=== PATIENT | male | born 1940 | race Caucasian/White ===

== ENCOUNTER 2017-08-17 16:52 | Inpatient (IN) | payer MEDICARE, OTHER ==
[2017-08-17] MEDS: NORMAL SALINE 1000 ML 1,000 ML IV PRN ×2 (17:01→18:30)
[2017-08-17 17:10] LABS: ABSOLUTE EOSINOPHILS # (AUTO) 0.1 10^3/uL (0.0-0.6); ABSOLUTE LYMPHOCYTES (AUTO) 1.4 10^3/uL (0.5-4.7); ABSOLUTE MONOCYTES (AUTO) 0.7 10^3/uL (0.1-1.4); BASOPHILS % (AUTO) 0.6 % (0-2); EOSINOPHILS % (AUTO) 0.9 % (0-6); HEMATOCRIT 39.3 % (37.9-51.0); HEMOGLOBIN 13.4 g/dL (13.5-17.0); LYMPHOCYTES % (AUTO) 17.3 % (13-45); MEAN CORPUSCULAR HEMOGLOBIN 31.2 pg (27.0-33.4); MEAN CORPUSCULAR HGB CONC 34.2 g/dL (32.0-36.0); MEAN CORPUSCULAR VOLUME 91 fl (80-97); MONOCYTES % (AUTO) 8.8 % (3-13); PLATELET COUNT 212 10^3/uL (150-450); RED BLOOD COUNT 4.31 10^6/uL (4.35-5.55); RED CELL DISTRIBUTION WIDTH 13.5 % (11.5-14.0); SEGMENTED NEUTROPHILS % (AUTO) 72.4 % (42-78); TOTAL CELLS COUNTED % (AUTO) 100 %; WHITE BLOOD COUNT 8.2 10^3/uL (4.0-10.5)
[2017-08-17 17:24] LABS: ALANINE AMINOTRANSFERASE 31 U/L (21-72); ALBUMIN 3.2 g/dL (3.5-5.0); ALKALINE PHOSPHATASE 84 U/L (38-126); ANION GAP 11 (5-19); ASPARTATE AMINO TRANSFERASE 24 U/L (17-59); BILIRUBIN,DIRECT 0.2 mg/dL (0.0-0.4); BLOOD UREA NITROGEN 14 mg/dL (7-20); CALCIUM 9.1 mg/dL (8.4-10.2); CARBON DIOXIDE 22 mmol/L (22-30); CHLORIDE 107 mmol/L (98-107); CREATINE KINASE 313 U/L (55-170); GLUCOSE 120 mg/dL (75-110); POTASSIUM 3.6 mmol/L (3.6-5.0); SODIUM 139.5 mmol/L (137-145)
[2017-08-17 17:35] LABS: CREATINE KINASE MB 5.89 ng/mL (<4.55); TROPONIN I 0.015 ng/mL
--- NOTE | 2017-08-17 18:08 | ER Document Report ---
ED General - General Chief Complaint: Syncope Stated Complaint: UNRESPONSIVE Time Seen by Provider: 08/17/17 17:37 Mode of Arrival: Medic Information source: Patient, Relative, Emergency Med Personnel Notes: This is a 77-year-old man with a history very artery disease (RI, balloon angioplasty), chronic urinary incontinence (Walker) who is brought in by EMS after syncopal episode. Patient states he was out mowing the lawn for 2 hours and he came into the house and then took a shower and immediately after taking a shower he became dizzy and then syncopized. The patient's came over and gave the patient nitroglycerin at that time. She states she had complete loss of consciousness. EMS was called at the scene and the patient's blood pressure at the time of EMS arrival was 83/44. Patient denied chest pain. He is alert and states he is feeling better. Of note, the patient's states his presentation during his RI was syncope. TRAVEL OUTSIDE OF THE [place] IN LAST 30 DAYS: No - HPI Onset: Just prior to arrival Onset/Duration: Sudden Quality of pain: No pain Severity: None Pain Level: Denies Associated symptoms: denies: Chest pain, Fever, Shortness of breath Exacerbated by: Denies Relieved by: Denies Similar symptoms previously: No Recently seen / treated by doctor: No - Related Data Allergies/Adverse Reactions: No Known Allergies Allergy (Unverified 05/23/11 06:27) Past Medical History - General Information source: Patient - Social History Smoking Status: Never Smoker Cigarette use (# per day): No Chew tobacco use (# tins/day): No Frequency of alcohol use: None Drug Abuse: None Lives with: Family Family History: None Patient has suicidal ideation: No Patient has homicidal ideation: No - Past Medical History Cardiac Medical History: Reports: Hx Hypercholesterolemia, Hx Hypertension GI Medical History: Reports: Hx Gastroesophageal Reflux Disease Past Surgical History: Reports: Hx Cardiac Catheterization - Immunizations Hx Diphtheria, Pertussis, Tetanus Vaccination: Yes Review of Systems - Review of Systems Constitutional: denies: Chills, Fever EENT: No symptoms reported Cardiovascular: See HPI Respiratory: No symptoms reported Gastrointestinal: No symptoms reported Genitourinary: No symptoms reported Male Genitourinary: No symptoms reported Musculoskeletal: No symptoms reported Skin: No symptoms reported Hematologic/Lymphatic: No symptoms reported Neurological/Psychological: No symptoms reported Physical Exam - Vital signs Vitals: Resp Pulse Ox 17 91 L 08/17/17 17:08 08/17/17 17:08 Notes: Physical exam: GENERAL: 77-year-old man, alert and oriented 3, no acute distress. Blood pressure is 99/65 HEAD: Atraumatic, normocephalic. EYES: Pupils equal round and reactive to light, extraocular movements intact, sclera anicteric, conjunctiva are normal. ENT: TMs normal, nares patent, oropharynx clear without exudates. Moist mucous membranes. NECK: Normal range of motion, supple without obvious mass or JVD. LUNGS: Breath sounds clear to auscultation bilaterally and equal. No wheezes rales or rhonchi. HEART: Regular rate and rhythm without murmurs, rubs or gallops. ABDOMEN: Soft, normoactive bowel sounds. No tenderness to palpation. No guarding, no rebound. No masses appreciated. EXTREMITIES: Normal range of motion, no pitting or edema. No clubbing or cyanosis. NEUROLOGICAL: Cranial nerves II through XII grossly intact. Normal speech, moving all extremities. PSYCH: Normal mood, normal affect. SKIN: Warm, Dry, normal turgor, no rashes or lesions noted. Course - Re-evaluation Re-evalutation: 08/17/17 20:15 Note: Patient has been feeling good and is been stable on a heart rate monitor. He has had no symptoms of UTI (I sent a culture). He does have a chronic urinary cath. - Vital Signs Vital signs: Temp Pulse Resp BP Pulse Ox 14 98/67 L 97 08/17/17 21:00 08/17/17 18:45 08/17/17 21:00 - Laboratory Result Diagrams: 08/17/17 17:00 08/17/17 17:00 Laboratory results interpreted by me: 08/17/17 08/17/17 08/17/17 17:00 17:00 17:00 RBC 4.31 L Hgb 13.4 L Glucose 120 H Creatine Kinase 313 H CK-MB (CK-2) 5.89 H Total Protein 6.0 L Albumin 3.2 L Urine Protein Urine Urobilinogen Ur Leukocyte Esterase 08/17/17 17:45 RBC Hgb Glucose Creatine Kinase CK-MB (CK-2) Total Protein Albumin Urine Protein 30 H Urine Urobilinogen 2.0 H Ur Leukocyte Esterase LARGE H - Diagnostic Test Radiology reviewed: Image reviewed, Reports reviewed - Chest x-ray shows no infiltrates - EKG Interpretation by Me Rate: Normal Rhythm: NSR - EKG shows normal sinus rhythm with a ventricular rate of 66, no acute ST-T wave changes Discharge - Discharge Clinical Impression: Syncope Condition: Stable Disposition: ADMITTED OBSERVATION Admitting Provider: Hospitalist - Dr. Wolf Unit Admitted: Telemetry
[2017-08-17 18:11] LABS: APPEARANCE,URINE SLIGHTLY-CLOUDY; BILIRUBIN,URINE NEGATIVE (NEGATIVE); COLOR,URINE YELLOW; GLUCOSE, URINE NEGATIVE (NEGATIVE); KETONES,URINE NEGATIVE (NEGATIVE); LEUKOCYTE ESTERASE,URINE LARGE (NEGATIVE); NITRITE,URINE NEGATIVE (NEGATIVE); PROTEIN,URINE 30 mg/dL (NEGATIVE); URINE SPECIFIC GRAVITY 1.012
--- NOTE | 2017-08-17 18:23 | EKG REPORT ---
SEVERITY:- ABNORMAL ECG - SINUS RHYTHM LATERAL INFARCT, OLD BORDERLINE PROLONGED QT INTERVAL : Confirmed by: Norberto Frias MD 17-Aug-2017 18:22:39
--- NOTE | 2017-08-17 18:37 | RADIOLOGY REPORT (SQ) ---
EXAM DESCRIPTION: CHEST SINGLE VIEW COMPLETED DATE/TIME: 08/17/2017 6:23 pm REASON FOR STUDY: syncope COMPARISON: 12/19/2007 EXAM PARAMETERS: NUMBER OF VIEWS: One view. TECHNIQUE: Single frontal radiographic view of the chest acquired. RADIATION DOSE: NA LIMITATIONS: None. FINDINGS: LUNGS AND PLEURA: No acute opacities, masses or pneumothorax. No pleural effusion. MEDIASTINUM AND HILAR STRUCTURES: Stable. HEART AND VASCULAR STRUCTURES: Heart normal in size. Normal vasculature. BONES: No acute findings. HARDWARE: None in the chest. OTHER: No other significant finding. IMPRESSION: NO ACUTE RADIOGRAPHIC FINDING IN THE CHEST. TECHNICAL DOCUMENTATION: JOB ID: [id number] [id number] 2010 [employer]- All Rights Reserved Reading location - IP/workstation name: [email or web address]
[2017-08-17] MEDS ORDERED: MAG HYDROX/AL HYDROX/SIMETH SUSP 30 ML UDCUP PO PRN (20:12)
[2017-08-17] MEDS ORDERED: IPRATROPIUM/ALBUTEROL 0.5-2.5 MG/3 ML AMPUL NEB PRN (20:12)
[2017-08-17] MEDS ORDERED: ONDANSETRON HCL INJ/PF 4 MG/2 ML SDV IV PRN (20:12)
[2017-08-17] MEDS ORDERED: NORMAL SALINE 1000 ML 1,000 ML IV SCH (20:15)
[2017-08-17 22:55] LABS: URINE AMPHETAMINES SCREEN NEGATIVE; URINE BARBITURATES SCREEN NEGATIVE; URINE BENZODIAZEPINES SCREEN NEGATIVE; URINE COCAINE SCREEN NEGATIVE; URINE MARIJUANA (THC) SCREEN NEGATIVE; URINE METHADONE SCREEN NEGATIVE; URINE PHENCYCLIDINE SCREEN NEGATIVE
[2017-08-18 00:15] LABS: CREATINE KINASE MB 5.18 ng/mL (<4.55); TROPONIN I 0.017 ng/mL
[2017-08-18] MEDS: HEPARIN SOD (PORCINE) 5,000 UNIT/ML 1 ML SYRINGE SUBCUT SCH ×4 (00:50→21:21)
[2017-08-18] MEDS: SIMVASTATIN 40 MG TABLET PO SCH ×2 (00:50→21:20)
[2017-08-18 06:17] LABS: ABSOLUTE EOSINOPHILS # (AUTO) 0.1 10^3/uL (0.0-0.6); ABSOLUTE LYMPHOCYTES (AUTO) 1.5 10^3/uL (0.5-4.7); ABSOLUTE MONOCYTES (AUTO) 0.9 10^3/uL (0.1-1.4); ABSOLUTE NEUT (AUTO) 5.3 10^3/uL (1.7-8.2); BASOPHILS % (AUTO) 0.6 % (0-2); EOSINOPHILS % (AUTO) 1.4 % (0-6); HEMATOCRIT 35.5 % (37.9-51.0); HEMOGLOBIN 12.1 g/dL (13.5-17.0); LYMPHOCYTES % (AUTO) 19.3 % (13-45); MEAN CORPUSCULAR HEMOGLOBIN 31.2 pg (27.0-33.4); MEAN CORPUSCULAR VOLUME 92 fl (80-97); MONOCYTES % (AUTO) 11.9 % (3-13); PLATELET COUNT 190 10^3/uL (150-450); RED BLOOD COUNT 3.87 10^6/uL (4.35-5.55); RED CELL DISTRIBUTION WIDTH 13.6 % (11.5-14.0); SEGMENTED NEUTROPHILS % (AUTO) 66.8 % (42-78); TOTAL CELLS COUNTED % (AUTO) 100 %; WHITE BLOOD COUNT 7.9 10^3/uL (4.0-10.5)
[2017-08-18 06:50] LABS: ANION GAP 7 (5-19); BLOOD UREA NITROGEN 11 mg/dL (7-20); CALCIUM 8.6 mg/dL (8.4-10.2); CARBON DIOXIDE 24 mmol/L (22-30); CHLORIDE 109 mmol/L (98-107); GLUCOSE 83 mg/dL (75-110); POTASSIUM 3.5 mmol/L (3.6-5.0); SODIUM 139.9 mmol/L (137-145)
[2017-08-18 06:52] LABS: CREATINE KINASE MB 4.19 ng/mL (<4.55); TROPONIN I 0.025 ng/mL
--- NOTE | 2017-08-18 07:50 | PDOC H&P ---
History of Present Illness Admission Date/PCP: 08/17/17 20:23 Patient complains of: Syncope History of Present Illness: TITUS AVILES is a 77 year old male with history of coronary artery disease, chronic incontinence with indwelling Walker, hypertension gait instability. Patient presents after prolonged yardwork followed by hot shower with lightheadedness followed by syncope. Patient's is administered nitroglycerin. There was complete loss of consciousness with bowel incontinence , EMS records a blood pressure of 83/44. On route to emergency room patient recovers consciousness denying pain. In the emergency room he denies recent change in medications, previous episode and otherwise feels well. No headache, shortness of breath, nausea vomiting or chest pain. Past Medical History Cardiac Medical History: Reports: Myocardial Infarction - balloon placed, Hyperlipidema, Hypertension Renal/ Medical History: Reports: Other - BPH with indwelling Walker GI Medical History: Reports: Gastroesophageal Reflux Disease Psychiatric Medical History: Denies: Depression Past Surgical History Past Surgical History: Reports: Cardiac Catheterization Social History Information Source: Patient Lives with: Family Smoking Status: Never Smoker Frequency of Alcohol Use: None Hx Recreational Drug Use: No Drugs: None Hx Prescription Drug Abuse: No - Advance Directive Resuscitation Status: Full Code Family History Family History: Hypertension Parental Family History Reviewed: Yes Children Family History Reviewed: Yes Sibling(s) Family History Reviewed.: Yes Medication/Allergy Home Medications: Aspirin [Aspirin EC] 81 mg PO DAILY 08/17/17 Atorvastatin Calcium [Lipitor 40 mg Tablet] 40 mg PO QHS 08/17/17 Clopidogrel Bisulfate [Plavix 75 mg Tablet] 75 mg PO DAILY 08/17/17 Hydrochlorothiazide [Hydrodiuril 25 mg Tablet] 25 mg PO DAILY 08/17/17 Metoprolol Succinate [Toprol Xl 25 mg Tab.sr] 25 mg PO DAILY 08/17/17 Nitroglycerin [Nitrostat] 0.4 mg SL Q5MP PRN 08/17/17 Pantoprazole Sodium [Protonix] 40 mg PO BID 08/17/17 Terazosin HCl [Hytrin] 5 mg PO DAILY 08/17/17 Allergies/Adverse Reactions: No Known Allergies Allergy (Unverified 05/23/11 06:27) Review of Systems Constitutional: ABSENT: chills, fever(s), headache(s), weight gain, weight loss Eyes: ABSENT: visual disturbances Ears: ABSENT: hearing changes Cardiovascular: ABSENT: chest pain, dyspnea on exertion, edema, orthropnea, palpitations Respiratory: ABSENT: cough, hemoptysis Gastrointestinal: ABSENT: abdominal pain, constipation, diarrhea, hematemesis, hematochezia, nausea, vomiting Genitourinary: ABSENT: dysuria, hematuria Musculoskeletal: ABSENT: joint swelling Integumentary: ABSENT: rash, wounds Neurological: ABSENT: abnormal gait, abnormal speech, confusion, dizziness, focal weakness, syncope Psychiatric: ABSENT: anxiety, depression, homidical ideation, suicidal ideation Endocrine: ABSENT: cold intolerance, heat intolerance, polydipsia, polyuria Hematologic/Lymphatic: ABSENT: easy bleeding, easy bruising Physical Exam Vital Signs: Temp Pulse Resp BP Pulse Ox 98.3 F 79 16 123/70 99 08/18/17 04:16 08/18/17 04:16 08/18/17 04:16 08/18/17 04:16 08/18/17 04:16 Intake & Output 08/16/17 08/17/17 08/18/17 11:59 11:59 11:59 Intake Total 2250 Output Total 1800 Balance 450 Weight 108.2 kg General appearance: PRESENT: no acute distress, well-developed, well-nourished Head exam: PRESENT: atraumatic, normocephalic Eye exam: PRESENT: conjunctiva pink, EOMI, PERRLA. ABSENT: scleral icterus Ear exam: PRESENT: normal external ear exam Mouth exam: PRESENT: moist, tongue midline Neck exam: ABSENT: carotid bruit, JVD, lymphadenopathy, thyromegaly Respiratory exam: PRESENT: clear to auscultation santiago. ABSENT: rales, rhonchi, wheezes Cardiovascular exam: PRESENT: RRR. ABSENT: diastolic murmur, rubs, systolic murmur Pulses: PRESENT: normal dorsalis pedis pul Vascular exam: PRESENT: normal capillary refill GI/Abdominal exam: PRESENT: normal bowel sounds, soft. ABSENT: distended, guarding, mass, organolmegaly, rebound, tenderness Rectal exam: PRESENT: deferred Extremities exam: PRESENT: full ROM. ABSENT: calf tenderness, clubbing, pedal edema Neurological exam: PRESENT: alert, awake, oriented to person, oriented to place , oriented to time, oriented to situation, CN II-XII grossly intact. ABSENT: motor sensory deficit Psychiatric exam: PRESENT: appropriate affect, normal mood. ABSENT: homicidal ideation, suicidal ideation Skin exam: PRESENT: dry, intact, warm. ABSENT: cyanosis, rash Results Laboratory Results: 08/18/17 05:39 08/18/17 05:39 08/18/17 08/18/17 05:39 05:39 WBC 7.9 RBC 3.87 L Hgb 12.1 L Hct 35.5 L MCV 92 MCH 31.2 MCHC 34.0 RDW 13.6 Plt Count 190 Seg Neutrophils % 66.8 Lymphocytes % 19.3 Monocytes % 11.9 Eosinophils % 1.4 Basophils % 0.6 Absolute Neutrophils 5.3 Absolute Lymphocytes 1.5 Absolute Monocytes 0.9 Absolute Eosinophils 0.1 Absolute Basophils 0.0 Sodium 139.9 Potassium 3.5 L Chloride 109 H Carbon Dioxide 24 Anion Gap 7 BUN 11 Creatinine 0.78 Est GFR ( Amer) > 60 Est GFR (Non-Af Amer) > 60 Glucose 83 Calcium 8.6 08/17/17 08/17/17 08/18/17 23:33 23:33 05:39 Creatine Kinase 238 H 223 H CK-MB (CK-2) 5.18 H Troponin I 0.017 08/18/17 05:39 Creatine Kinase CK-MB (CK-2) 4.19 Troponin I 0.025 Impressions: Chest X-Ray 08/17/17 18:08 IMPRESSION: NO ACUTE RADIOGRAPHIC FINDING IN THE CHEST. Assessment & Plan - Diagnosis (1) Syncope Is this a current diagnosis for this admission?: Yes Plan: Likely secondary to urinary tract infection comp gated by terazosin. Empiric antibiotics initiated, IV fluid challenge and follow-up blood pressures (2) Hypotension Is this a current diagnosis for this admission?: Yes Plan: CARTER beckwith, please see #1 (3) BPH (benign prostatic hyperplasia) Is this a current diagnosis for this admission?: Yes Plan: Change terazosin dose to nightly (4) UTI (urinary tract infection) Is this a current diagnosis for this admission?: Yes Plan: Empiric antibiotics, follow-up CBC, blood and urine culture - Time Time Spent: 30 to 50 Minutes - Inpatient Certification Medical Necessity: Need Close Monitoring Due to Risk of Patient Decompensation
[2017-08-18] MEDS: DOCUSATE SODIUM 100 MG CAPSULE PO SCH ×2 (10:59→17:56)
[2017-08-18] MEDS: LANSOPRAZOLE 30 MG TAB.RAP.DR PO SCH ×2 (11:00→17:56)
[2017-08-18] MEDS: ASPIRIN 325 MG TABLET PO SCH (11:00)
[2017-08-18] MEDS: CLOPIDOGREL BISULFATE 75 MG TABLET PO SCH (11:00)
[2017-08-18] MEDS: METOPROLOL SUCCINATE 25 MG TAB.SR.24H PO SCH (11:01)
[2017-08-18 12:42] LABS: CREATINE KINASE MB 3.58 ng/mL (<4.55); TROPONIN I 0.018 ng/mL
[2017-08-18] MEDS ORDERED: CEFTRIAXONE 1 GM/D5W RTU 1 GM/50 ML RTUPB IV SCH (14:00)
[2017-08-18] MEDS ORDERED: POTASSIUM CHLORIDE 10 MEQ TABLET.SA PO ONE (14:30)
[2017-08-18] MEDS: CEFTRIAXONE SODIUM 1,000 MG in DEXTROSE 5%-WATER 50 ML IV SCH (15:03)
--- NOTE | 2017-08-18 19:35 | PDOC PROGRESS REPORT ---
Subjective Progress Note for:: 08/18/17 Subjective:: Doing better, no recurrent syncope. No chest pain or shortness of breath or palpitations. Denies fever or chills. Family at bedside. Reason For Visit: SYNCOPE HYPOTENSION Physical Exam Vital Signs: Temp Pulse Resp BP Pulse Ox 98.6 F 69 18 114/61 97 08/18/17 15:58 08/18/17 16:00 08/18/17 16:00 08/18/17 15:58 08/18/17 16:00 Intake & Output 08/17/17 08/18/17 08/19/17 06:59 06:59 06:59 Intake Total 2250 510 Output Total 1800 600 Balance 450 -90 Weight 108.2 kg GEN: NAD, well-developed, well-nourished CV: RRR, NL S1S2 LUNGS: CTA bilaterally ABDOMEN Soft, NT, +BS EXTERMITIES: No e/c/c NEURO: Alert, oriented, no acute weakness Results Laboratory Results: 08/18/17 05:39 08/18/17 05:39 08/18/17 08/18/17 05:39 05:39 WBC 7.9 RBC 3.87 L Hgb 12.1 L Hct 35.5 L MCV 92 MCH 31.2 MCHC 34.0 RDW 13.6 Plt Count 190 Seg Neutrophils % 66.8 Lymphocytes % 19.3 Monocytes % 11.9 Eosinophils % 1.4 Basophils % 0.6 Absolute Neutrophils 5.3 Absolute Lymphocytes 1.5 Absolute Monocytes 0.9 Absolute Eosinophils 0.1 Absolute Basophils 0.0 Sodium 139.9 Potassium 3.5 L Chloride 109 H Carbon Dioxide 24 Anion Gap 7 BUN 11 Creatinine 0.78 Est GFR ( Amer) > 60 Est GFR (Non-Af Amer) > 60 Glucose 83 Calcium 8.6 08/17/17 08/17/17 08/18/17 23:33 23:33 05:39 Creatine Kinase 238 H 223 H CK-MB (CK-2) 5.18 H Troponin I 0.017 08/18/17 08/18/17 08/18/17 05:39 11:35 11:35 Creatine Kinase 185 H CK-MB (CK-2) 4.19 3.58 Troponin I 0.025 0.018 Impressions: Chest X-Ray 08/17/17 18:08 IMPRESSION: NO ACUTE RADIOGRAPHIC FINDING IN THE CHEST. Assessment & Plan - Plan Summary Plan Summary: (1) Syncope Is this a current diagnosis for this admission?: Yes Plan: Likely secondary to urinary tract infection complicated by terazosin. We will continue empiric antibioticsd, IV fluid challenge and to follow-up blood pressures (2) Hypotension Is this a current diagnosis for this admission?: Yes Plan: CARTER stockings (3) BPH (benign prostatic hyperplasia) Is this a current diagnosis for this admission?: Yes Plan: Admissionist changed terazosin dose to nightly --will continue (4) UTI (urinary tract infection), catheter associated Is this a current diagnosis for this admission?: Yes Plan: Continue empiric antibiotics with Rocephin, follow-up CBC, blood and urine culture
[2017-08-18] MEDS: DOXAZOSIN MESYLATE 4 MG TABLET PO SCH (21:20)
[2017-08-19] MEDS: HEPARIN SOD (PORCINE) 5,000 UNIT/ML 1 ML SYRINGE SUBCUT SCH ×3 (05:26→22:20)
[2017-08-19 05:37] LABS: ABSOLUTE BASOPHILS # (AUTO) 0.1 10^3/uL (0.0-0.2); ABSOLUTE EOSINOPHILS # (AUTO) 0.1 10^3/uL (0.0-0.6); ABSOLUTE LYMPHOCYTES (AUTO) 1.6 10^3/uL (0.5-4.7); ABSOLUTE MONOCYTES (AUTO) 0.8 10^3/uL (0.1-1.4); ABSOLUTE NEUT (AUTO) 4.7 10^3/uL (1.7-8.2); BASOPHILS % (AUTO) 0.7 % (0-2); HEMATOCRIT 34.9 % (37.9-51.0); HEMOGLOBIN 12.1 g/dL (13.5-17.0); LYMPHOCYTES % (AUTO) 21.4 % (13-45); MEAN CORPUSCULAR HEMOGLOBIN 31.8 pg (27.0-33.4); MEAN CORPUSCULAR HGB CONC 34.8 g/dL (32.0-36.0); MEAN CORPUSCULAR VOLUME 92 fl (80-97); MONOCYTES % (AUTO) 11.4 % (3-13); PLATELET COUNT 166 10^3/uL (150-450); RED BLOOD COUNT 3.81 10^6/uL (4.35-5.55); RED CELL DISTRIBUTION WIDTH 13.6 % (11.5-14.0); SEGMENTED NEUTROPHILS % (AUTO) 64.5 % (42-78); TOTAL CELLS COUNTED % (AUTO) 100 %; WHITE BLOOD COUNT 7.3 10^3/uL (4.0-10.5)
[2017-08-19 06:28] LABS: ANION GAP 8 (5-19); BLOOD UREA NITROGEN 12 mg/dL (7-20); CALCIUM 8.8 mg/dL (8.4-10.2); CARBON DIOXIDE 23 mmol/L (22-30); CHLORIDE 109 mmol/L (98-107); GLUCOSE 91 mg/dL (75-110); POTASSIUM 4.1 mmol/L (3.6-5.0); SODIUM 139.7 mmol/L (137-145)
[2017-08-19] MEDS: METOPROLOL SUCCINATE 25 MG TAB.SR.24H PO SCH (10:46)
[2017-08-19] MEDS: CLOPIDOGREL BISULFATE 75 MG TABLET PO SCH (10:46)
[2017-08-19] MEDS: ASPIRIN 325 MG TABLET PO SCH (10:46)
[2017-08-19] MEDS: DOCUSATE SODIUM 100 MG CAPSULE PO SCH ×2 (10:48→18:48)
[2017-08-19] MEDS: LANSOPRAZOLE 30 MG TAB.RAP.DR PO SCH ×2 (10:53→18:48)
--- NOTE | 2017-08-19 12:51 | PDOC PROGRESS REPORT ---
Subjective Progress Note for:: 08/19/17 Subjective:: Doing better, no recurrent syncope. No chest pain or shortness of breath or palpitations. Denies fever or chills. at bedside. Reason For Visit: SYNCOPE HYPOTENSION Physical Exam Vital Signs: Temp Pulse Resp BP Pulse Ox 98.1 F 59 L 14 123/63 99 08/19/17 07:46 08/19/17 08:20 08/19/17 08:20 08/19/17 07:46 08/19/17 08:20 GEN: NAD, well-developed, well-nourished CV: RRR, NL S1S2 LUNGS: CTA bilaterally ABDOMEN Soft, NT, +BS EXTERMITIES: No e/c/c NEURO: Alert, oriented, no acute weakness Results Impressions: Chest X-Ray 08/17/17 18:08 IMPRESSION: NO ACUTE RADIOGRAPHIC FINDING IN THE CHEST. Assessment & Plan - Plan Summary Plan Summary: (1) Syncope Is this a current diagnosis for this admission?: Yes Plan: Likely secondary to urinary tract infection complicated by terazosin. Urine culture growing gram-negative rods. Will follow culture results. For now we will continue empiric antibiotics with Rocephin, IV fluid challenge and to follow-up blood pressures (2) Hypotension Is this a current diagnosis for this admission?: Yes Plan: CARTER beckwith (3) BPH (benign prostatic hyperplasia) Is this a current diagnosis for this admission?: Yes Plan: Admissionist changed terazosin dose to nightly --will continue (4) UTI (urinary tract infection), catheter associated Is this a current diagnosis for this admission?: Yes Plan: Continue empiric antibiotics with Rocephin, follow-up CBC, blood and urine culture
[2017-08-19] MEDS: GLYCERIN/WITCH HAZEL LEAF 1 EACH MED..PAD TP SCH ×2 (15:52→18:50)
[2017-08-19] MEDS: CEFTRIAXONE SODIUM 1,000 MG in DEXTROSE 5%-WATER 50 ML IV SCH (15:53)
[2017-08-19] MEDS: DOXAZOSIN MESYLATE 4 MG TABLET PO SCH (22:19)
[2017-08-19] MEDS: SIMVASTATIN 40 MG TABLET PO SCH (22:19)
[2017-08-20] MEDS: HEPARIN SOD (PORCINE) 5,000 UNIT/ML 1 ML SYRINGE SUBCUT SCH (06:01)
[2017-08-20 08:36] VITALS: BP 127/69
[2017-08-20] MEDS: CLOPIDOGREL BISULFATE 75 MG TABLET PO SCH (09:58)
[2017-08-20] MEDS: ASPIRIN 325 MG TABLET PO SCH (09:58)
[2017-08-20] MEDS: METOPROLOL SUCCINATE 25 MG TAB.SR.24H PO SCH (09:59)
[2017-08-20] MEDS: LANSOPRAZOLE 30 MG TAB.RAP.DR PO SCH (09:59)
[2017-08-20] MEDS: DOCUSATE SODIUM 100 MG CAPSULE PO SCH (10:00)
[2017-08-20] MEDS: GLYCERIN/WITCH HAZEL LEAF 1 EACH MED..PAD TP SCH (10:00)
[2017-08-20] MEDS ORDERED: CIPROFLOXACIN HCL 500 MG TABLET PO ONE (10:30)
--- NOTE | 2017-08-20 20:37 | PDOC DISCHARGE SUMMARY ---
General - Admit/Disc Date/PCP Admission Date/Primary Care Provider: 08/19/17 11:07 Discharge Date: 08/20/17 - Additional Information Resuscitation Status: Full Code Discharge Diet: Cardiac Discharge Activity: Activity As Tolerated Prescriptions: Ciprofloxacin HCl [Cipro 500 mg Tablet] 500 mg PO BID #14 tablet Home Medications: Aspirin [Aspirin EC] 81 mg PO DAILY 08/17/17 Atorvastatin Calcium [Lipitor 40 mg Tablet] 40 mg PO QHS 08/17/17 Clopidogrel Bisulfate [Plavix 75 mg Tablet] 75 mg PO DAILY 08/17/17 Hydrochlorothiazide [Hydrodiuril 25 mg Tablet] 25 mg PO DAILY 08/17/17 Metoprolol Succinate [Toprol Xl 25 mg Tab.sr] 25 mg PO DAILY 08/17/17 Nitroglycerin [Nitrostat] 0.4 mg SL Q5MP PRN 08/17/17 Pantoprazole Sodium [Protonix] 40 mg PO BID 08/17/17 Terazosin HCl [Hytrin] 5 mg PO DAILY 08/17/17 Aspirin [Aspirin 325 mg Tablet] 325 mg PO DAILY tablet 08/20/17 Ciprofloxacin HCl [Cipro 500 mg Tablet] 500 mg PO BID #14 tablet 08/20/17 History of Present Illness History of Present Illness: Patient was admitted after he presented as seen HPI below: "TITUS AVILES is a 77 year old male with history of coronary artery disease, chronic incontinence with indwelling Walker, hypertension gait instability. Patient presents after prolonged yardwork followed by hot shower with lightheadedness followed by syncope. Patient's is administered nitroglycerin. There was complete loss of consciousness with bowel incontinence , EMS records a blood pressure of 83/44. On route to emergency room patient recovers consciousness denying pain. In the emergency room he denies recent change in medications, previous episode and otherwise feels well. No headache, shortness of breath, nausea vomiting or chest pain." Hospital Course Hospital Course: Patient was admitted and managed as follows: (4) UTI (urinary tract infection), catheter associated Is this a current diagnosis for this admission?: Yes Plan: Patient was treated with Rocephin IV. Urine culture grew Alcaligenes Species and Providencia Rettgeri sensitive to Rocephin and ciprofloxacin, among others. He is doing better now, no dysuria and he is being discharged home on Cipro 500 mg orally twice daily for 7 additional days of antibiotics. (1) Syncope Is this a current diagnosis for this admission?: Yes Plan: Likely secondary to urinary tract infection complicated by terazosin. He improved with IV fluid challenge. Doing much better at this time, no recurrent syncope or presyncope. No dizziness. (2) Hypotension Is this a current diagnosis for this admission?: Yes Plan: Resolved. (3) BPH (benign prostatic hyperplasia) Is this a current diagnosis for this admission?: Yes Plan: Instructed to take terazosin at nights. Disposition: Patient is being discharged home in stable condition. He is to follow-up with his primary care physician within 1 week. Physical Exam Vital Signs: Temp Pulse Resp BP Pulse Ox 98.3 F 60 17 127/69 H 98 08/20/17 10:48 08/20/17 10:48 08/20/17 10:48 08/20/17 10:48 08/20/17 10:48 Intake & Output 08/19/17 08/20/17 08/21/17 06:59 06:59 06:59 Intake Total 2025 Output Total 4580 Balance -2554 GEN: NAD, well-developed, well-nourished CV: RRR, NL S1S2 LUNGS: CTA bilaterally ABDOMEN Soft, NT, +BS EXTERMITIES: No e/c/c NEURO: Alert, oriented, no acute weakness Results Impressions: Chest X-Ray 08/17/17 18:08 IMPRESSION: NO ACUTE RADIOGRAPHIC FINDING IN THE CHEST. Qualifiers - * PATIENT BEING DISCHARGED WITH ANY OF THE FOLLOWING DIAGNOSIS: No
== END 2017-08-20 11:38 | disposition home or self-care (01) | DRG 700 ==
LOC: ER 16:52 → EH 20:23 → INTOOBSV 20:23 → 4N 22:26 → OBSVTOIN 08-19 11:07
PROVIDERS: ADMIT Internal Medicine; ATTEND Internal Medicine
PROC: 3E0F73Z Introduction of Anti-inflammatory into Respiratory Tract, Via Natural or Artificial Opening (ICD-10-PCS; principal; 2017-08-18)
DX: T83.511A Infection and inflammatory reaction due to indwelling urethral catheter, initial encounter (principal); N39.0 Urinary tract infection, site not specified; I25.10 Atherosclerotic heart disease of native coronary artery without angina pectoris; I10 Essential (primary) hypertension; R26.9 Unspecified abnormalities of gait and mobility; Y84.6 Urinary catheterization as the cause of abnormal reaction of the patient, or of later complication, without mention of misadventure at the time of the procedure; N40.1 Benign prostatic hyperplasia with lower urinary tract symptoms; E78.00 Pure hypercholesterolemia, unspecified; K21.9 Gastro-esophageal reflux disease without esophagitis; I25.2 Old myocardial infarction; Z79.899 Other long term (current) drug therapy; Z82.49 Family history of ischemic heart disease and other diseases of the circulatory system
CPT/HCPCS: 36415; 71045; 80048; 80053; 80307; 81001; 82550; 82553; 83735; 84443; 84484; 85025; 87086; 87088; 87186; 93005; 93010; 99285; G0378; J0696; J1644; J3490; J7030

== ENCOUNTER 2018-10-03 13:04 | Emergency (ER) | payer MEDICARE, OTHER ==
[2018-10-03] MEDS ORDERED: LIDOCAINE 2% URO-JET 5 ML KIT MM ONE (13:39)
[2018-10-03 19:11] VITALS: BP 132/103
--- NOTE | 2018-10-03 19:37 | ER Document Report ---
Entered by RIC CRUZ SCRIBE 10/03/18 1531 Acting as scribe for:FÁTIMA ROME DO ED GI/ - General Chief Complaint: Problem with Urinary Catheter Stated Complaint: CATHETER ISSUE Time Seen by Provider: 10/03/18 15:14 Primary Care Provider: DARIO AZUL [facility] [Primary Care Provider] - Follow up as needed Mode of Arrival: Ambulatory Information source: Patient Notes: 78-year-old male that presents to the emergency department today with complaints of urinary retention for the past 24 hours. Patient is at [facility] [place] secondary to a recent LA/CVA. Patient states his reeves catheter was likely accidentally removed yesterday. at bedside states he has had a Reeves catheter for years and they are both unsure of if the catheter was removed accidentally or purposely. Patient states the nurse at [place] was attempting to insert another reeves catheter today but had noticed a large amount of blood so she stopped. TRAVEL OUTSIDE OF THE [place] IN LAST 30 DAYS: No - Related Data Allergies/Adverse Reactions: No Known Allergies Allergy (Unverified 05/23/11 06:27) Past Medical History - General Information source: Patient - Social History Smoking Status: Never Smoker Cigarette use (# per day): No Chew tobacco use (# tins/day): No Frequency of alcohol use: None Drug Abuse: None Lives with: Family Family History: Reviewed & Not Pertinent, Hypertension - Past Medical History Cardiac Medical History: Reports: Hx Heart Attack - balloon placed, Hx Hypercholesterolemia, Hx Hypertension GI Medical History: Reports: Hx Gastroesophageal Reflux Disease Past Surgical History: Reports: Hx Cardiac Catheterization - Immunizations Hx Diphtheria, Pertussis, Tetanus Vaccination: Yes Review of Systems - Review of Systems Constitutional: No symptoms reported EENT: No symptoms reported Cardiovascular: No symptoms reported Respiratory: No symptoms reported Gastrointestinal: No symptoms reported Genitourinary: See HPI, Hematuria, Retention Male Genitourinary: No symptoms reported Musculoskeletal: No symptoms reported Skin: No symptoms reported Hematologic/Lymphatic: No symptoms reported Neurological/Psychological: No symptoms reported -: Yes All other systems reviewed and negative Physical Exam - Vital signs Vitals: Resp Pulse Ox 29 H 94 10/03/18 14:00 10/03/18 14:00 - Notes Notes: PHYSICAL EXAM GENERAL: Alert, interacts well. Appears uncomfortable. HEAD: Normocephalic, atraumatic. EYES: Pupils equal, round, and reactive to light. Extraocular movements intact. ENT: Oral mucosa moist, tongue midline. NECK: Full range of motion. Supple. Trachea midline. LUNGS: Clear to auscultation bilaterally, no wheezes, rales, or rhonchi. No respiratory distress. HEART: Regular rate and rhythm. No murmurs, gallops, or rubs. ABDOMEN: Soft with lower abdomen revealing firm palpable bladder otherwise non-distended. Bowel sounds present in all 4 quadrants. No guarding, rigidity, or rebound. : External genitalia unremarkable. EXTREMITIES: Moves all 4 extremities spontaneously. No edema, radial and dorsali s pedis pulses 2/4 bilaterally. No cyanosis. NEUROLOGICAL: Alert and oriented x3. Normal speech. PSYCH: Normal affect, normal mood. SKIN: Warm, dry, normal turgor. No rashes or lesions noted. Course - Re-evaluation Re-evalutation: 10/03/18 15:33 Only complaints that the patient had a Reeves catheter removed and has been able to urinate for the past 24 hours. Reeves catheter was placed under my direct supervision of the bedside without any difficulty, clear slightly yellow urine came pouring out, no blood, no difficulty placing the Reeves catheter. Patient will be discharged back to the group home. - Vital Signs Vital signs: Temp Pulse Resp BP Pulse Ox 21 H 132/103 H 94 10/03/18 19:01 10/03/18 19:01 10/03/18 18:01 Discharge - Discharge Clinical Impression: Acute urinary retention, Encounter for Reeves catheter replacement Condition: Stable Disposition: HOME-SNF (ED ONLY) Additional Instructions: We put in a new Reeves catheter with a coud catheter. Please consult with your primary care physician to see if this should ever be removed or if you need to stay using a Reeves catheter for the rest of your life. Referrals: DARIO AZUL, [facility] [Primary Care Provider] - Follow up as needed I personally performed the services described in the documentation, reviewed and edited the documentation which was dictated to the scribe in my presence, and it accurately records my words and actions.
== END 2018-10-03 22:15 ==
LOC: ER 13:04
DX: R33.9 Retention of urine, unspecified (principal); Z46.6 Encounter for fitting and adjustment of urinary device; I10 Essential (primary) hypertension; I25.2 Old myocardial infarction; Z86.73 Personal history of transient ischemic attack (TIA), and cerebral infarction without residual deficits
CPT/HCPCS: 99284; 51702; 87086; 87088; 87186; A9270; J3490

== ENCOUNTER 2018-11-17 22:26 | Emergency (ER) | payer MEDICARE, OTHER ==
--- NOTE | 2018-11-17 23:47 | ER Document Report ---
ED General - General Chief Complaint: Needs Urinary Cath Replaced Stated Complaint: TORRES CATH CHANGE Time Seen by Provider: 11/17/18 22:44 Primary Care Provider: BENJAMIN BALDERAS MD [Primary Care Provider] - Follow up as needed Mode of Arrival: Medic Information source: Patient, Emergency Med Personnel, [facility] Records, Outside Facility Records Notes: 78-year-old male with hypertension, hyperlipidemia, atrial fibrillation, enlarged prostate with chronic Torres presents via EMS from [facility] with concern for malfunctioning Torres catheter. EMS reports nursing informed him that the catheter has not been draining. Patient has not had any blood in his urine, blood clots. He does state he felt mild abdominal discomfort earlier but it has now been relieved after Torres replacement. He denies any fever, chills, nausea, vomiting, chest pain. TRAVEL OUTSIDE OF THE [place] IN LAST 30 DAYS: No - HPI Onset: Other Onset/Duration: Gradual Quality of pain: Achy, Pressure Severity: Mild Associated symptoms: denies: Chest pain, Chills, Fever, Nausea, Vomiting, Shortness of breath Exacerbated by: Denies Relieved by: Denies Similar symptoms previously: Yes Recently seen / treated by doctor: Yes - Related Data Allergies/Adverse Reactions: No Known Allergies Allergy (Unverified 05/23/11 06:27) Past Medical History - General Information source: Patient, [facility] Records, Outside Facility Records - Social History Smoking Status: Never Smoker Frequency of alcohol use: None Drug Abuse: None Lives with: [facility] Family History: Reviewed & Not Pertinent, Hypertension Patient has suicidal ideation: No Patient has homicidal ideation: No - Past Medical History Cardiac Medical History: Reports: Hx Heart Attack - balloon placed, Hx Hypercholesterolemia, Hx Hypertension Renal/ Medical History: Denies: Hx Peritoneal Dialysis GI Medical History: Reports: Hx Gastroesophageal Reflux Disease Psychiatric Medical History: Denies: Hx Depression Past Surgical History: Reports: Hx Cardiac Catheterization - Immunizations Hx Diphtheria, Pertussis, Tetanus Vaccination: Yes Review of Systems - Review of Systems Notes: REVIEW OF SYSTEMS: CONSTITUTIONAL : Denies fever, chills, or sweats. Denies recent illness. Denies weight loss, recent hospitalizations. EENT: Denies visual changes, eye pain. Denies sore throat, oral lesions, difficulty swallowing. CARDIOVASCULAR: Denies chest pain. Denies palpitations. Denies lower extremity edema. RESPIRATORY: Denies cough. Denies shortness of breath, wheezing. GASTROINTESTINAL: Denies abdominal pain + abdominal distention. Denies nausea, vomiting, or diarrhea. Denies blood in vomitus, stools, or per rectum. Denies black, tarry stools. Denies constipation. GENITOURINARY: Denies difficulty urinating, painful urination, frequency, blood in urine, testicular pain or penile discharge. MUSCULOSKELETAL: Denies back or neck pain or stiffness. Denies joint pain or swelling. SKIN: Denies rash, lesions or sores. HEMATOLOGIC : Denies easy bruising or bleeding. LYMPHATIC: Denies swollen glands. NEUROLOGICAL: Denies confusion or altered mental status. Denies loss of consciousness. Denies dizziness or lightheadedness. Denies headache. Denies weakness or paralysis. Denies problems difficulty with ambulation, slurred speech. Denies sensory loss, numbness, or tingling. Denies seizures. PSYCHIATRIC: Denies anxiety or stress. Denies depression, suicidal ideation, or Physical Exam - Notes Notes: PHYSICAL EXAMINATION: GENERAL: Well-appearing, well-nourished and in no acute distress. HEAD: Atraumatic, normocephalic. EYES: Pupils equal round and reactive to light, extraocular movements intact, sclera anicteric, conjunctiva are normal. ENT: Nares patent, oropharynx clear without exudates. Moist mucous membranes. NECK: Normal range of motion, supple without lymphadenopathy LUNGS: Breath sounds clear to auscultation bilaterally and equal. No wheezes rales or rhonchi. HEART: Regular rate and rhythm without murmurs ABDOMEN: Soft, nontender, nondistended abdomen. No guarding, no rebound. No masses appreciated. Musculoskeletal: Normal range of motion, no pitting or edema. No cyanosis. NEUROLOGICAL: Cranial nerves grossly intact. Normal speech, normal gait. Normal sensory, motor exams PSYCH: Normal mood, normal affect. SKIN: Warm, Dry, normal turgor, no rashes or lesions noted. Course - Re-evaluation Re-evalutation: 11/18/18 01:41 78-year-old male presents from [facility] with complaints of Torres catheter malfunction. Patient reported that he had some mild abdominal discomfort which was relieved once Torres catheter was exchanged. Patient will be discharged back to [facility]. 11/18/18 01:42 Patient was evaluated and treated as appropriate for the patient's presenting symptoms and complaint, with consideration of any critical or life threatening conditions that may be associated with their obtained history and exam as noted above. All results were discussed with patient. Patient provided the opportunity to ask questions, and express concerns. Patient was educated on treatments based on their presumed diagnosis as noted above. At this time we will discharge the patient with return precautions and follow-up recommendations. Verbal discharge instructions given a the bedside. Medication warnings reviewed. Patient is in agreement with this plan and has verbalized understanding of return precautions. After careful consideration I feel that that patient can be safely discharged from the emergency department, they were advised to followup with a primary care physician in 2-3 days. Dictation on this chart was performed using voice recognition software and may result in unintended grammatical, spelling, syntax or errors. Discharge - Discharge Clinical Impression: Trores catheter problem Qualifiers: Encounter type: initial encounter Qualified Code(s): T83.9XXA - Unspecified complication of genitourinary prosthetic device, implant and graft, initial encounter Condition: Good Disposition: SNF-Other Instructions: Torres Catheter Care ([facility]) Additional Instructions: Follow up with your [id number] hours for further care or return to the ED IMMEDIATELY if symptoms worsen or you have any concerns. If you cannot afford to follow up with your primary care physician a list of low cost clinics have been provided at the end of your discharge papers as well. Most prescribed medications have multiple side effects. The safest thing to do is when filling your prescription speak to your pharmacist regarding possible interactions with your normal home medications and over the counter medications such as Ibuprofen, Tylenol, Benadryl. If you experience any symptoms that cause you discomfort or concern you should discontinue the medication immediately and return to the emergency room or call your primary care physician. Referrals: BENJAMIN BALDERAS MD [Primary Care Provider] - Follow up as needed
[2018-11-18 06:40] VITALS: BP 126/78
== END 2018-11-18 08:47 ==
LOC: ER 22:26
DX: T83.9XXA Unspecified complication of genitourinary prosthetic device, implant and graft, initial encounter (principal); X58.XXXA Exposure to other specified factors, initial encounter; N40.0 Benign prostatic hyperplasia without lower urinary tract symptoms; E78.00 Pure hypercholesterolemia, unspecified; I10 Essential (primary) hypertension; E78.5 Hyperlipidemia, unspecified; I48.91 Unspecified atrial fibrillation; I25.2 Old myocardial infarction
CPT/HCPCS: 51702; 99283; C1758

== ENCOUNTER 2019-04-17 09:00 | Day surgery (SDC) | payer MEDICARE, OTHER ==
[~2019-04-17 09:00] MED LIST: BUPIVACAINE HCL 0.75% INJ/PF (7.5 MG/1 ML) 10 ML SDV OD PRN; CHONDR SU A NA/HYALUR INTRAOC KIT (SURGICARE) ONE; EPINEPHRINE INJ/PF 1 MG/1 ML AMPULE ONE; KETOROLAC TROMETHAMINE 0.45% 4 DROP/0.4 ML DROPERETTE OD PRN; LIDOCAINE 1% INJ-PF (10 MG/ML) 30 ML SDV ONE; LIDOCAINE 4% INJ/PF (40 MG/ML) 5 ML AMPUL OD PRN
[2019-04-17] MEDS ORDERED: LIDOCAINE 1%/PHENYLEPHRINE 1.5% 1 ML VIAL ONE (09:16)
[2019-04-17] MEDS: BESIFLOXACIN HCL 0.6% OPH SUSP 5 ML BOTTLE OD PRN ×4 (10:32→11:50)
[2019-04-17] MEDS: TROPICAMIDE 1% OPH SOLN 15 ML OD PRN ×3 (10:32→10:52)
[2019-04-17] MEDS: CYCLOPENTOLATE 0.2%/PHENYLEPHRINE 1% OPH SOLN 2 ML OD PRN ×3 (10:32→10:52)
[2019-04-17] MEDS: TETRACAINE HCL 0.5% OPH SOLN 4 ML OD PRN ×3 (10:33→11:11)
[2019-04-17] MEDS ORDERED: MIDAZOLAM 2 MG/2 ML INJ ONE (10:49)
[2019-04-17] MEDS: DORZOLAMIDE HCL 2%/TIMOLOL MALEAT 0.5% OPH SOLN 10 ML OD PRN ×2 (11:48→11:50)
--- NOTE | 2019-04-17 13:20 | Operative Report ---
Operative Report-[facility] Operative Report: DATE OF SURGERY: 04/17/2019 PREOPERATIVE DIAGNOSIS: CATARACT, RIGHT EYE. POSTOPERATIVE DIAGNOSIS: CATARACT, RIGHT EYE. PROCEDURE PERFORMED: PHACOEMULSIFICATION WITH POSTERIOR CHAMBER INTRAOCULAR LENS, RIGHT EYE. Intraocular Lens Model : SN 60 WF 21.0 Total Phaco Time: 8.04 CDE SURGEON: NAHOMY BARRIENTOS MD ANESTHESIA: TOPICAL WITH MAC. INDICATIONS FOR SURGERY: Difficulty reading small print. PROCEDURE: The patient was brought to the Operating Room and placed on the operative table. Following tetracaine drops, topical anesthesia was administered. This consisted of instrument wipe pledgets soaked in a solution of 4% Xylocaine mixed with 0.75% Marcaine in a 1:2 ratio. A 2 x 1 cm pledget was placed in the superior fornix. A 1 x 1 cm pledget was placed in the inferior fornix. The eye was patched shut for 5 minutes. The patch was removed. The eye was sterilely prepped and draped in the usual manner. Lid speculum was placed in the eye. The pledgets were removed. 4-0 black silk sutures were placed around the superior and the inferior rectus muscles to be used as traction. A conjunctival peritomy was made at the 10 o'clock position. Hemostasis was obtained with bipolar cautery. A posterior limbal groove was created using a crescent knife and dissected anteriorly towards the cornea. A sharp point blade was used to create a paracentesis site at the 2 o'clock position. 0.2 cc non preserved Lidocaine with phenylephrine was injected into the anterior chamber. A 2.4 mm keratome was used to enter the anterior chamber through the groove. Viscoelastic was injected into the anterior chamber. An anterior capsulotomy was performed using Utrata forceps in a capsulorrhexis fashion. Hydrodissection and hydrodelineation were performed. Phacoemulsification was performed in [id number] technique. Following this, the I/A unit was used to remove residual cortex. Viscoelastic was injected into the capsular bag. The Intraocular lens was placed in the capsular bag. The I/A unit was used to remove residual viscoelastic. The wound was seen to be watertight under high and low pressure, and no sutures were placed. The intraocular lens was well centered. The pressure was adjusted in the eye to normal pressure. The 4-0 black silk sutures and lid speculum were removed. The eye was shielded after Besivance. prednisolone, and Cosopt drops were placed. The patient tolerated the procedure well and was sent to the Recovery Room in good condition.
== END 2019-04-17 12:43 | disposition home or self-care (01) ==
LOC: SC 09:00
PROVIDERS: ATTEND Ophthalmology
DX: H25.813 Combined forms of age-related cataract, bilateral (principal); H34.232 Retinal artery branch occlusion, left eye; H35.372 Puckering of macula, left eye; H57.03 Miosis; I11.9 Hypertensive heart disease without heart failure; E78.00 Pure hypercholesterolemia, unspecified; Z86.73 Personal history of transient ischemic attack (TIA), and cerebral infarction without residual deficits; Z79.01 Long term (current) use of anticoagulants; Z79.899 Other long term (current) drug therapy; Z79.82 Long term (current) use of aspirin; Z86.718 Personal history of other venous thrombosis and embolism; Z86.74 Personal history of sudden cardiac arrest; I49.9 Cardiac arrhythmia, unspecified
CPT/HCPCS: 66984; V2632; J2250; J3490 ×4; A9270; J0171; J2370